=== PATIENT | female | born 1990 | race Caucasian/White ===

== ENCOUNTER 2016-06-12 18:12 | Emergency (ER) | payer MEDICAID ==
[2016-06-12 17:24] LABS: URINE SOURCE CLEAN CATCH
[2016-06-12 17:28] LABS: URINE APPEARANCE CLEAR; URINE BILIRUBIN NEG (NEG); URINE BLOOD NEG (NEG); URINE COLOR YELLOW; URINE GLUCOSE NEG (NEG); URINE KETONE NEG (NEG); URINE LEUKOCYTE ESTERASE NEG (NEG); URINE NITRATE NEG (NEG); URINE PROTEIN NEG (NEG); URINE SPECIFIC GRAVITY 1.011 (1.003-1.035); URINE UROBILINOGEN 0.2 MG/DL (NEG)
[2016-06-12 17:33] LABS: CULTURE INDICATED? NO
[2016-06-14 21:48] LABS: CHLAMYDIA TRACH Not Detected (Not Detected); N GONOR Not Detected (Not Detected)
== END 2016-06-12 18:25 | disposition home or self-care (01) ==
LOC: CFTX 18:12
PROVIDERS: Nurse Practitioner Family
DX: R10.32 Left lower quadrant pain (principal); F31.9 Bipolar disorder, unspecified; F17.210 Nicotine dependence, cigarettes, uncomplicated; Z98.890 Other specified postprocedural states; Z79.899 Other long term (current) drug therapy
CPT/HCPCS: 81003; 84703; 87491; 87591; 87808; 87905; 99284

== ENCOUNTER 2016-06-19 19:11 | Emergency (ER) | payer MEDICAID ==
--- NOTE | ~2016-06-19 | CR229 ---
[facility] A Service of [facility] RADIOLOGY TEXT RESULTS PATIENT: HOMER BYRNE LOCATION: [facility] : [birth year] UNIT #: [id number] AGE: [address]: Monet Cullen SEX: F ORDER DR: [id number] [facility] [address] [place], [place] [address] [id number] E MR#: [id number] Acc #: [id number] NAME: HOMER BYRNE : 1990 SEX: F STUDY DATE/TIME: 06/19/2016 18:38 UNIT: CFTX ROOM: STUDY DESCRIPTION: CR Shoulder Min 2 View Lt Attending Physician: Monet Cullen P.A.-C. Ordering Physician: Monet Cullen P.A.-C. Primary Care Physician: Analisa Piedra A.P.R.N. MEDICAL IMAGING REPORT This report is preliminary unless electronic signature is present EXAM 3 views left shoulder HISTORY Left shoulder pain after someone fell on her while playing basketball today. FINDINGS AP view with internal and external rotation of the shoulder girdle shows satisfactory relationship of the humeral head and glenoid fossa. The joint space is normal. There is no identifiable fracture or dislocation or bony destructive process about the shoulder girdle anatomy. The acromioclavicular joint is normal. There is no radiopaque foreign body in the region. IMPRESSION Negative. Dictated by... Melody Camacho M.D. THIS IS AN ELECTRONICALLY VERIFIED REPORT Melody Camacho M.D. at 06/20/2016 10:38 AM AFF/rnr TD: 06/19/2016 20:06 JOB #: [id number] MEDICAL IMAGING REPORT [facility] A Service [facility] RADIOLOGY TEXT RESULTS PATIENT: HOMER BYRNE LOCATION: [facility] : [birth year] UNIT #: [id number] AGE: [address]: Monet Cullen SEX: F ORDER DR: Page 1 of 1 COPY
--- NOTE | ~2016-06-19 | CR156 ---
[facility] A Service of [facility] RADIOLOGY TEXT RESULTS PATIENT: HOMER BYRNE LOCATION: [facility] : [birth year] UNIT #: [id number] AGE: [address]: Monet Cullen SEX: F ORDER DR: [id number] [facility] [address] [place], [place] [address] [id number] E MR#: [id number] Acc #: [id number] NAME: HOMER BYRNE : 1990 SEX: F STUDY DATE/TIME: 06/19/2016 18:35 UNIT: CFTX ROOM: STUDY DESCRIPTION: CR Humerus Min 2 View Lt Attending Physician: Monet Cullen P.A.-C. Ordering Physician: Monet Cullen P.A.-C. Primary Care Physician: Analisa Piedra A.P.R.N. MEDICAL IMAGING REPORT This report is preliminary unless electronic signature is present EXAM 2 views left humerus INDICATIONS Pain after someone fell on her today. This occurred while the patient was playing basketball. FINDINGS There is no evidence of fracture, dislocation, or radiopaque foreign body. No focal bone lesions are seen. IMPRESSION Negative Dictated by... Melody Camacho M.D. THIS IS AN ELECTRONICALLY VERIFIED REPORT Melody Camacho M.D. at 06/20/2016 10:38 AM AFF/karen TD: 06/19/2016 19:57 JOB #: [id number] MEDICAL IMAGING REPORT Page 1 of 1 COPY
== END 2016-06-19 19:15 | disposition left against medical advice (07) ==
LOC: CED 19:11
DX: S46.912A Strain of unspecified muscle, fascia and tendon at shoulder and upper arm level, left arm, initial encounter (principal); S46.212A Strain of muscle, fascia and tendon of other parts of biceps, left arm, initial encounter; F32.9 Major depressive disorder, single episode, unspecified; F41.9 Anxiety disorder, unspecified; F17.210 Nicotine dependence, cigarettes, uncomplicated; W22.8XXA Striking against or struck by other objects, initial encounter; Y93.67 Activity, basketball; Y92.310 Basketball court as the place of occurrence of the external cause
CPT/HCPCS: 73030; 73060; 99284